=== PATIENT | female | born 1960 | race Caucasian/White ===

== ENCOUNTER 2017-12-04 19:17 | Emergency (ER) | payer OTHER ==
[~2017-12-04] VITALS: Ht 160 cm; Wt 61.1 kg
[2017-12-04 19:31] LABS: URINE HCG NEGATIVE (NEG)
[2017-12-04 19:32] LABS: CLARITY,URINE SLIGHTLY CLOUDY (Clear); COLOR,URINE YELLOW (Yellow); GLUCOSE, URINE NEGATIVE (Neg); KETONES,URINE NEGATIVE (Neg); LEUKOCYTE ESTERASE ,URINE LARGE (Neg); NITRITES, URINE NEGATIVE (Neg); OCCULT BLOOD,URINE LARGE (Neg); PROTEIN,URINE 30 mg/dl (Neg); UROBILINOGEN,URINE 0.2 E.U/dL (0.2-1.0)
[2017-12-04 19:33] LABS: UA COLLECTION TYPE CLN CATCH MIDSTREAM
[2017-12-04 19:41] LABS: WBC,URINE TNTC /HPF (0-4)
[2017-12-04 19:42] LABS: BACTERIA,URINE 3+ /HPF (Neg); MUCUS STRANDS FEW /LPF (Neg); RBC,URINE 20-50 /HPF (0-2); SQUAMOUS EPITHELIAL CELL,UR FEW /LPF (FEW); WBC CLUMPS,URINE FEW /HPF (NEGATIVE)
[2017-12-04] MEDS ORDERED: phenazopyridine 100mg tablet PO ONE (20:05)
[2017-12-04] MEDS ORDERED: CIPR-230 PO (20:07)
[2017-12-04] MEDS ORDERED: PHEN-716 PO (20:07)
[2017-12-04] MEDS ORDERED: ciprofloxacin 250mg tablet PO ONE (20:10)
[2017-12-04 20:22] VITALS: BP 135/87
== END 2017-12-04 20:23 | disposition home or self-care (01) ==
LOC: ER 19:18
DX: N39.0 Urinary tract infection, site not specified (principal); Z79.899 Other long term (current) drug therapy
CPT/HCPCS: 81001; 81025; 87077; 87088; 87186; 99284

== ENCOUNTER 2018-06-06 16:21 | Outpatient (CLI) | payer OTHER ==
[~2018-06-06 16:21] MED LIST: PHEN-716 PO
[2018-06-06 17:12] LABS: BASOPHILS % (AUTO) 0.7 % (0-1); EOSINOPHILS # (AUTO) 0.1 X10'3 (0-0.9); EOSINOPHILS % (AUTO) 1.8 % (0-6); HEMATOCRIT 40.8 % (35.0-45.0); HEMOGLOBIN 13.6 g/dl (12.0-16.0); LYMPHOCYTES # (AUTO) 1.7 X10'3 (1.1-4.8); LYMPHOCYTES % (AUTO) 34.7 % (21-51); MEAN CORPUSCULAR HEMOGLOBIN 28.2 PG (27.0-31.0); MEAN CORPUSCULAR HGB CONC 33.3 % (33.0-36.5); MEAN CORPUSCULAR VOLUME 84.7 FL (78-98); MEAN PLATELET VOLUME 7.7 FL (7.4-10.4); MONOCYTES # (AUTO) 0.4 X10'3 (0-0.9); MONOCYTES % (AUTO) 8.5 % (2-12); NEUTROPHILS # (AUTO) 2.6 X10'3 (1.8-7.7); NEUTROPHILS % (AUTO) 54.3 % (42-75); PLATELET COUNT 343 X10'3 (140-440); RED BLOOD COUNT 4.82 X10'6 (4.20-5.60); RED CELL DISTRIBUTION WIDTH 13.2 % (11.5-14.5); WHITE BLOOD COUNT 4.8 X10'3 (4.5-11.0)
[2018-06-06 17:37] LABS: ALANINE AMINOTRANSFERASE 27 U/L (12-78); ALBUMIN 3.7 G/DL (3.4-5.0); ALKALINE PHOSPHATASE 94 IU/L (46-116); ANION GAP 8 (8-16); ASPARTATE AMINO TRANSFERASE 17 U/L (10-37); BILIRUBIN,TOTAL 0.3 MG/DL (0.1-1.0); BLOOD UREA NITROGEN 15 MG/DL (7-18); BUN/CREATININE RATIO 22.1 (6.6-38.0); CALCIUM 9.3 MG/DL (8.5-10.1); CHLORIDE 104 MMOL/L (99-107); CHOLESTEROL 239 MG/DL (0-200); CREATININE 0.68 MG/DL (0.40-0.90); GLUCOSE 85 MG/DL (70-104); HDL CHOLESTEROL 79 MG/DL (35-60); LDL CHOLESTEROL 142 MG/DL (50-100); POTASSIUM 4.2 MMOL/L (3.5-5.1); SODIUM 141 MMOL/L (135-145); TOTAL CARBON DIOXIDE 29.3 MMOL/L (24-32); TOTAL PROTEIN 7.4 G/DL (6.4-8.2); TRIGLYCERIDES 60 MG/DL (20-135); eGFR 89 ML/MIN
[2018-06-06 17:47] LABS: % IRON SATURATION 24 % (11-46); IRON 91 UG/DL (49-151); TOTAL IRON BINDING CAPACITY 377 UG/DL (259-388)
[2018-06-08 07:34] LABS: VITAMIN D, 25-HYDROXY 30.5 ng/mL (30.0-100.0)
== END 2018-06-06 23:59 | disposition home or self-care (01) ==
LOC: LAB 16:21
PROVIDERS: ATTEND Family Medicine
DX: Z12.11 Encounter for screening for malignant neoplasm of colon (principal); Z12.31 Encounter for screening mammogram for malignant neoplasm of breast; R53.83 Other fatigue; Z76.89 Persons encountering health services in other specified circumstances; Z87.891 Personal history of nicotine dependence
CPT/HCPCS: 36415; 80053; 80061; 80164; 82306; 82607; 82746; 83540; 83550; 84436; 84439; 84443; 85025

== ENCOUNTER 2018-07-11 04:52 | Emergency (ER) | payer OTHER ==
[~2018-07-11] VITALS: Ht 162.6 cm; Wt 63.0 kg
[2018-07-11 04:58] VITALS: BP 141/74
== END 2018-07-11 06:12 | disposition home or self-care (01) ==
LOC: ER 04:52
DX: S61.032A Puncture wound without foreign body of left thumb without damage to nail, initial encounter (principal); W46.0XXA Contact with hypodermic needle, initial encounter; Y93.89 Activity, other specified; Y92.238 Other place in hospital as the place of occurrence of the external cause; Y99.9 Unspecified external cause status
CPT/HCPCS: 99281

== ENCOUNTER 2019-03-15 09:05 | Day surgery (SDC) | payer OTHER ==
[~2019-03-15] VITALS: Ht 162.6 cm; Wt 63.6 kg
[2019-03-15 09:10] VITALS: BP 124/50
[2019-03-15] MEDS ORDERED: NO HOME MEDS (09:16)
[2019-03-15] MEDS ORDERED: MIDAZolam 5mg/5ml vial ONE (09:17)
[2019-03-15] MEDS ORDERED: fentaNYL/PF 50MCG/1 ML 2ML syringe ONE (09:17)
[2019-03-15 10:18] VITALS: BP 134/69
[2019-03-15 10:28] VITALS: BP 112/61
[2019-03-15 10:38] VITALS: BP 107/57
[2019-03-15 10:48] VITALS: BP 112/56
== END 2019-03-15 10:55 | disposition home or self-care (01) ==
LOC: GI LAB 09:05
PROVIDERS: ATTEND Internal Medicine Gastroenterology
DX: Z12.11 Encounter for screening for malignant neoplasm of colon (principal); Z87.19 Personal history of other diseases of the digestive system
CPT/HCPCS: 45378; 99152; J2250; J3010; J7040; A4620

== ENCOUNTER 2019-04-23 16:19 | Outpatient (CLI) | payer OTHER ==
[~2019-04-23 16:19] MED LIST changes: +NO HOME MEDS; -PHEN-716 PO
[2019-04-23 16:50] LABS: BASOPHILS % (AUTO) 0.4 % (0-1); EOSINOPHILS % (AUTO) 0.8 % (0-6); HEMATOCRIT 42.3 % (35.0-45.0); HEMOGLOBIN 14.2 g/dl (12.0-16.0); LYMPHOCYTES # (AUTO) 1.8 X10'3 (1.1-4.8); LYMPHOCYTES % (AUTO) 28.3 % (21-51); MEAN CORPUSCULAR HEMOGLOBIN 28.8 PG (27.0-31.0); MEAN CORPUSCULAR HGB CONC 33.7 g/dL (33.0-36.5); MEAN CORPUSCULAR VOLUME 85.5 FL (78-98); MEAN PLATELET VOLUME 8.1 FL (7.4-10.4); MONOCYTES # (AUTO) 0.4 X10'3 (0-0.9); MONOCYTES % (AUTO) 6.8 % (2-12); NEUTROPHILS # (AUTO) 4.2 X10'3 (1.8-7.7); NEUTROPHILS % (AUTO) 63.7 % (42-75); PLATELET COUNT 356 X10'3 (140-440); RED BLOOD COUNT 4.94 X10'6 (4.20-5.60); RED CELL DISTRIBUTION WIDTH 13.1 % (11.5-14.5); WHITE BLOOD COUNT 6.5 X10'3 (4.5-11.0)
[2019-04-23 16:58] LABS: CLARITY,URINE CLEAR (Clear); COLOR,URINE STRAW (Yellow); GLUCOSE, URINE NEGATIVE (Neg); KETONES,URINE NEGATIVE (Neg); LEUKOCYTE ESTERASE ,URINE NEGATIVE (Neg); NITRITES, URINE NEGATIVE (Neg); OCCULT BLOOD,URINE TRACE-INTACT (Neg); PH,URINE 7.5 (4.8-8.0); PROTEIN,URINE NEGATIVE (Neg); UROBILINOGEN,URINE 0.2 E.U/dL (0.2-1.0)
[2019-04-23 16:59] LABS: UA COLLECTION TYPE CLN CATCH MIDSTREAM
[2019-04-23 17:00] LABS: HEMOGLOBIN A1C 5.6 % (4.5-6.2)
[2019-04-23 17:05] LABS: BACTERIA,URINE NONE SEEN /HPF (Neg); MUCUS STRANDS NONE SEEN /LPF (Neg); RBC,URINE 0-2 /HPF (0-2); SQUAMOUS EPITHELIAL CELL,UR FEW /LPF (FEW); WBC,URINE 0-4 /HPF (0-4)
[2019-04-23 17:24] LABS: ALANINE AMINOTRANSFERASE 30 U/L (12-78); ALBUMIN 4.1 G/DL (3.4-5.0); ALBUMIN/GLOBULIN RATIO 1.1 (1.1-1.5); ALKALINE PHOSPHATASE 90 IU/L (46-116); ANION GAP 10 (8-16); ASPARTATE AMINO TRANSFERASE 18 U/L (10-37); BILIRUBIN,TOTAL 0.4 MG/DL (0.1-1.0); BLOOD UREA NITROGEN 10 MG/DL (7-18); BUN/CREATININE RATIO 15.2 (6.6-38.0); CALCIUM 8.8 MG/DL (8.5-10.1); CHLORIDE 102 MMOL/L (99-107); CHOL/HDL RATIO 2.9 (0.00-4.99); CHOLESTEROL 227 MG/DL (0-200); CREATININE 0.66 MG/DL (0.40-0.90); GLUCOSE 90 MG/DL (70-104); HDL CHOLESTEROL 79 MG/DL (35-60); LDL CHOLESTEROL 140 MG/DL (50-100); POTASSIUM 3.7 MMOL/L (3.5-5.1); SODIUM 139 MMOL/L (135-145); TRIGLYCERIDES 43 MG/DL (20-135); eGFR > 90 ML/MIN
[2019-04-23 17:50] LABS: % IRON SATURATION 18 % (11-46); IRON 72 UG/DL (49-151); TOTAL IRON BINDING CAPACITY 397 UG/DL (259-388)
== END 2019-04-23 23:59 | disposition home or self-care (01) ==
LOC: LAB 16:19
PROVIDERS: ATTEND Family Medicine
DX: Z12.11 Encounter for screening for malignant neoplasm of colon (principal); R53.83 Other fatigue; E78.5 Hyperlipidemia, unspecified
CPT/HCPCS: 36415; 80053; 80061; 81001; 82607; 82746; 83036; 83540; 83550; 84439; 84443; 85025

== ENCOUNTER 2019-07-11 11:46 | Emergency (ER) | payer OTHER ==
[~2019-07-11] VITALS: Ht 162.6 cm; Wt 67.0 kg
[2019-07-11 11:53] VITALS: BP 155/59
[2019-07-11] MEDS ORDERED: HYDROcodone/acetaminophen 10/325mg tab PO ONE (14:05)
[2019-07-11] MEDS ORDERED: HYDR-3965 PO (14:10)
[2019-07-11] MEDS ORDERED: ketorolac trometh inj. 60 MG/2 ML VIAL IM ONE (14:10)
== END 2019-07-11 14:56 | disposition home or self-care (01) ==
LOC: ER 11:46
DX: S52.592A Other fractures of lower end of left radius, initial encounter for closed fracture (principal); W18.49XA Other slipping, tripping and stumbling without falling, initial encounter; Y93.89 Activity, other specified; Y92.89 Other specified places as the place of occurrence of the external cause; Y99.9 Unspecified external cause status
CPT/HCPCS: 29125; 93971; 96372; 99284; J1885

== ENCOUNTER 2020-07-29 10:28 | Outpatient (CLI) | payer BC ==
[2020-07-29 11:13] LABS: CLARITY,URINE CLEAR (Clear); COLOR,URINE YELLOW (Yellow); GLUCOSE, URINE NEGATIVE (Neg); KETONES,URINE NEGATIVE (Neg); LEUKOCYTE ESTERASE ,URINE NEGATIVE (Neg); NITRITES, URINE NEGATIVE (Neg); OCCULT BLOOD,URINE NEGATIVE (Neg); PROTEIN,URINE NEGATIVE (Neg); UROBILINOGEN,URINE 0.2 E.U/dL (0.2-1.0)
[2020-07-29 11:17] LABS: BASOPHILS % (AUTO) 0.7 % (0-1); EOSINOPHILS # (AUTO) 0.1 X10'3 (0-0.9); HEMATOCRIT 35.8 % (35.0-45.0); HEMOGLOBIN 11.4 g/dl (12.0-16.0); LYMPHOCYTES # (AUTO) 1.8 X10'3 (1.1-4.8); LYMPHOCYTES % (AUTO) 33.3 % (21-51); MEAN CORPUSCULAR HEMOGLOBIN 24.2 PG (27.0-31.0); MEAN CORPUSCULAR HGB CONC 31.9 g/dL (33.0-36.5); MEAN CORPUSCULAR VOLUME 75.9 FL (78-98); MEAN PLATELET VOLUME 7.8 FL (7.4-10.4); MONOCYTES # (AUTO) 0.5 X10'3 (0-0.9); MONOCYTES % (AUTO) 10.1 % (2-12); NEUTROPHILS # (AUTO) 2.9 X10'3 (1.8-7.7); NEUTROPHILS % (AUTO) 53.9 % (42-75); PLATELET COUNT 435 X10'3 (140-440); RED BLOOD COUNT 4.72 X10'6 (4.20-5.60); RED CELL DISTRIBUTION WIDTH 14.5 % (11.5-14.5); WHITE BLOOD COUNT 5.4 X10'3 (4.5-11.0)
[2020-07-29 11:20] LABS: HEMOGLOBIN A1C 6.4 % (4.5-6.2)
[2020-07-29 11:22] LABS: UA COLLECTION TYPE CLN CATCH MIDSTREAM
[2020-07-29 11:41] LABS: ALANINE AMINOTRANSFERASE 19 U/L (12-78); ALBUMIN 3.9 G/DL (3.4-5.0); ALBUMIN/GLOBULIN RATIO 1.1 (1.1-1.5); ALKALINE PHOSPHATASE 81 IU/L (46-116); ANION GAP 3 (8-16); ASPARTATE AMINO TRANSFERASE 14 U/L (10-37); BILIRUBIN,TOTAL 0.3 MG/DL (0.1-1.0); BLOOD UREA NITROGEN 12 MG/DL (7-18); CHLORIDE 102 MMOL/L (99-107); CHOL/HDL RATIO 3.5 (0.00-4.99); CHOLESTEROL 235 MG/DL (0-200); GLUCOSE 94 MG/DL (70-104); HDL CHOLESTEROL 68 MG/DL (35-60); LDL CHOLESTEROL 140 MG/DL (50-100); POTASSIUM 3.9 MMOL/L (3.5-5.1); SODIUM 134 MMOL/L (135-145); TOTAL CARBON DIOXIDE 28.9 MMOL/L (24-32); TOTAL PROTEIN 7.6 G/DL (6.4-8.2); TRIGLYCERIDES 83 MG/DL (20-135); eGFR 73 ML/MIN
== END 2020-07-29 23:59 | disposition home or self-care (01) ==
LOC: LAB 10:28
PROVIDERS: ATTEND Family Medicine
DX: R73.03 Prediabetes (principal)
CPT/HCPCS: 36415; 80053; 80061; 81003; 83036; 84439; 84443; 85025

== ENCOUNTER 2020-08-18 07:55 | Emergency (ER) | payer BC ==
[~2020-08-18] VITALS: Ht 162.6 cm; Wt 63.6 kg
[2020-08-18 07:56] VITALS: BP 105/74
[2020-08-18 08:22] LABS: CLARITY,URINE CLOUDY (Clear); COLOR,URINE YELLOW (Yellow); GLUCOSE, URINE NEGATIVE (Neg); KETONES,URINE NEGATIVE (Neg); LEUKOCYTE ESTERASE ,URINE MODERATE (Neg); NITRITES, URINE NEGATIVE (Neg); OCCULT BLOOD,URINE LARGE (Neg); PROTEIN,URINE 100 mg/dl (Neg); UROBILINOGEN,URINE 0.2 E.U/dL (0.2-1.0)
[2020-08-18] MEDS ORDERED: phenazopyridine 100mg tablet PO ONE (08:25)
[2020-08-18 08:27] LABS: UA COLLECTION TYPE CLN CATCH MIDSTREAM
[2020-08-18 08:28] LABS: WBC,URINE TNTC /HPF (0-4)
[2020-08-18 08:29] LABS: BACTERIA,URINE 1+ /HPF (Neg); MUCUS STRANDS NONE SEEN /LPF (Neg); SQUAMOUS EPITHELIAL CELL,UR FEW /LPF (FEW)
[2020-08-18] MEDS ORDERED: CefTRIAXone 1000mg IM Kit (w/lidocaine diluent) IM ONE (09:00)
[2020-08-18] MEDS ORDERED: CEFD300C3 PO (09:08)
[2020-08-18] MEDS ORDERED: PHEN-786 PO (09:08)
== END 2020-08-18 09:30 | disposition home or self-care (01) ==
LOC: ER 07:55
DX: N10 Acute pyelonephritis (principal); Z88.8 Allergy status to other drugs, medicaments and biological substances; Z79.899 Other long term (current) drug therapy; Z87.440 Personal history of urinary (tract) infections
CPT/HCPCS: 81001; 87077; 87088; 87186; 96372; 99283; J0696

== ENCOUNTER 2021-02-25 09:11 | Outpatient (CLI) | payer BC ==
[~2021-02-25 09:11] MED LIST changes: +PHEN-786 PO
[2021-02-25 09:58] LABS: BASOPHILS % (AUTO) 0.7 % (0-1); EOSINOPHILS # (AUTO) 0.1 X10'3 (0-0.9); EOSINOPHILS % (AUTO) 1.7 % (0-6); HEMATOCRIT 34.6 % (35.0-45.0); HEMOGLOBIN 11.5 g/dl (12.0-16.0); LYMPHOCYTES # (AUTO) 1.9 X10'3 (1.1-4.8); LYMPHOCYTES % (AUTO) 32.5 % (21-51); MEAN CORPUSCULAR HGB CONC 33.2 g/dL (33.0-36.5); MEAN CORPUSCULAR VOLUME 81.3 FL (78-98); MEAN PLATELET VOLUME 7.8 FL (7.4-10.4); MONOCYTES # (AUTO) 0.5 X10'3 (0-0.9); MONOCYTES % (AUTO) 8.8 % (2-12); NEUTROPHILS # (AUTO) 3.2 X10'3 (1.8-7.7); NEUTROPHILS % (AUTO) 56.3 % (42-75); PLATELET COUNT 435 X10'3 (140-440); RED BLOOD COUNT 4.25 X10'6 (4.20-5.60); RED CELL DISTRIBUTION WIDTH 14.7 % (11.5-14.5); WHITE BLOOD COUNT 5.7 X10'3 (4.5-11.0)
[2021-02-25 10:06] LABS: HEMOGLOBIN A1C 5.9 % (4.5-6.2)
[2021-02-25 10:11] LABS: ALANINE AMINOTRANSFERASE 32 U/L (12-78); ALBUMIN 3.9 G/DL (3.4-5.0); ALBUMIN/GLOBULIN RATIO 1.1 (1.1-1.5); ALKALINE PHOSPHATASE 97 IU/L (46-116); ANION GAP 10 (8-16); ASPARTATE AMINO TRANSFERASE 24 U/L (10-37); BILIRUBIN,TOTAL 0.2 MG/DL (0.1-1.0); BLOOD UREA NITROGEN 15 MG/DL (7-18); BUN/CREATININE RATIO 20.8 (6.6-38.0); CALCIUM 8.7 MG/DL (8.5-10.1); CHLORIDE 103 MMOL/L (99-107); CHOL/HDL RATIO 2.8 (0.00-4.99); CHOLESTEROL 273 MG/DL (0-200); CREATININE 0.72 MG/DL (0.40-0.90); GLUCOSE 88 MG/DL (70-104); HDL CHOLESTEROL 99 MG/DL (35-60); LDL CHOLESTEROL 156 MG/DL (50-100); SODIUM 141 MMOL/L (135-145); TOTAL CARBON DIOXIDE 28.1 MMOL/L (24-32); TOTAL PROTEIN 7.6 G/DL (6.4-8.2); TRIGLYCERIDES 42 MG/DL (20-135); eGFR 83 ML/MIN
== END 2021-02-25 23:59 | disposition home or self-care (01) ==
LOC: LAB 09:11
PROVIDERS: ATTEND Family Medicine
DX: R73.03 Prediabetes (principal)
CPT/HCPCS: 36415; 80053; 80061; 83036; 84439; 84443; 85025; 87088

== ENCOUNTER 2021-08-25 13:17 | Outpatient (CLI) | payer BC ==
[2021-08-25 14:52] LABS: BASOPHILS % (AUTO) 0.6 % (0-1); EOSINOPHILS # (AUTO) 0.1 X10'3 (0-0.9); EOSINOPHILS % (AUTO) 0.9 % (0-6); HEMATOCRIT 38.6 % (35.0-45.0); HEMOGLOBIN 12.7 g/dl (12.0-16.0); LYMPHOCYTES % (AUTO) 26.3 % (21-51); MEAN CORPUSCULAR HEMOGLOBIN 26.3 PG (27.0-31.0); MEAN CORPUSCULAR HGB CONC 32.8 g/dL (33.0-36.5); MEAN CORPUSCULAR VOLUME 80.3 FL (78-98); MEAN PLATELET VOLUME 7.6 FL (7.4-10.4); MONOCYTES # (AUTO) 0.6 X10'3 (0-0.9); MONOCYTES % (AUTO) 7.6 % (2-12); NEUTROPHILS # (AUTO) 4.8 X10'3 (1.8-7.7); NEUTROPHILS % (AUTO) 64.6 % (42-75); PLATELET COUNT 378 X10'3 (140-440); RED BLOOD COUNT 4.81 X10'6 (4.20-5.60); RED CELL DISTRIBUTION WIDTH 15.4 % (11.5-14.5); WHITE BLOOD COUNT 7.5 X10'3 (4.5-11.0)
[2021-08-25 15:43] LABS: % IRON SATURATION 16 % (11-46); IRON 69 UG/DL (49-151); TOTAL IRON BINDING CAPACITY 424 UG/DL (259-388)
== END 2021-08-25 23:59 | disposition home or self-care (01) ==
LOC: LAB 13:17
PROVIDERS: ATTEND Family Medicine
DX: R53.83 Other fatigue (principal)
CPT/HCPCS: 36415; 82306; 82607; 82746; 83540; 83550; 85025

== ENCOUNTER 2021-12-26 10:05 | Emergency (ER) | payer BC ==
[~2021-12-26] VITALS: Ht 162.6 cm; Wt 63.6 kg
[2021-12-26 10:33] VITALS: BP 126/77
[2021-12-26] MEDS ORDERED: AMOX-115 PO (10:43)
== END 2021-12-26 10:52 | disposition home or self-care (01) ==
LOC: EEVIPCON 10:06 → ER 10:06
DX: J32.9 Chronic sinusitis, unspecified (principal); Z79.899 Other long term (current) drug therapy
CPT/HCPCS: 99283

== ENCOUNTER 2023-07-06 02:27 | Emergency (ER) | payer BC ==
[~2023-07-06] VITALS: Ht 162.6 cm; Wt 62.3 kg
[2023-07-06] MEDS ORDERED: ketorolac trometh. 30mg/ml inj. IV ONE (02:55)
[2023-07-06] MEDS ORDERED: acetaminophen 325mg tablet PO ONE (02:55)
[2023-07-06] MEDS ORDERED: proCHLORperazine 10 MG/2 ml inj IV ONE (02:55)
[2023-07-06] MEDS ORDERED: normal saline 1000ml 1,000 ML IV ONE (02:55)
[2023-07-06 03:50] VITALS: TEMP 99.2
[2023-07-06] MEDS ORDERED: orphenadrine citrate 60mg/2ml inj. IM ONE (03:55)
[2023-07-06 04:55] VITALS: BP 151/75; PULSE 65; O2SAT 97
[2023-07-06] MEDS ORDERED: oxyCODONE IR 5mg (immed. release) tablet PO ONE (04:55)
[2023-07-06 05:01] VITALS: RESP 18
[2023-07-06] MEDS ORDERED: LIDOCAINE 1%/EPI 1:100,000 inj. 10 ML multi-dose vial IJ ONE (05:05)
[2023-07-06] MEDS ORDERED: CYCL-1 PO (05:15)
== END 2023-07-06 05:28 | disposition home or self-care (01) ==
LOC: ER 02:29
DX: G58.9 Mononeuropathy, unspecified (principal); R51.9 Headache, unspecified; M43.6 Torticollis; Z79.899 Other long term (current) drug therapy
CPT/HCPCS: 96361; 96372; 96374; 96375; 99284; J0780; J1885; J2360; J7030

== ENCOUNTER 2024-08-20 07:31 | Outpatient (CLI) | payer SELFPAY ==
[~2024-08-20 07:31] MED LIST changes: +CYCL-1 PO
== END 2024-08-20 23:59 | disposition home or self-care (01) ==
LOC: VAS 07:31
PROVIDERS: ATTEND Radiology Diagnostic Radiology
DX: Z13.9 Encounter for screening, unspecified (principal)